=== PATIENT | male | born 1950 | race Two or more races ===

== ENCOUNTER 2016-09-10 14:42 | Emergency (ER) | payer OTHER ==
[~2016-09-10] VITALS: Ht 170.2 cm; Wt 66.7 kg
[2016-09-10] MEDS ORDERED: UNOBMED (14:59)
[2016-09-10 15:00] VITALS: BP 170/82
[2016-09-10] MEDS ORDERED: Albuterol ud Inhalation HHN ONE (15:15)
[2016-09-10] MEDS ORDERED: Ipratropium 0.02% Inh Soln 2.5ml UD HHN ONE (15:15)
[2016-09-10 15:37] LABS: BASOPHILS % (AUTO) 1.1 % (0.0-2.0); EOSINOPHILS % (AUTO) 0.7 % (0.0-3.0); LYMPHOCYTES % (AUTO) 14.1 % (20.0-45.0); MEAN CORPUSCULAR HEMOGLOBIN 30.5 PG (27.0-31.0); MEAN CORPUSCULAR HGB CONC 33.8 G/DL (32.0-36.0); MEAN CORPUSCULAR VOLUME 90 FL (80-99); MEAN PLATELET VOLUME 5.6 FL (6.5-10.1); MONOCYTES % (AUTO) 8.6 % (1.0-10.0); NEUTROPHILS % (AUTO) 75.5 % (45.0-75.0); PLATELET COUNT 504 K/UL (150-450); RED BLOOD COUNT 5.21 M/UL (4.70-6.10); RED CELL DISTRIBUTION WIDTH 12.2 % (11.6-14.8); WHITE BLOOD COUNT 15.3 K/UL (4.8-10.8)
[2016-09-10 15:38] LABS: APPEARANCE,URINE CLEAR; KETONES,URINE 1+ (NEGATIVE); LEUKOCYTE ESTERASE ,URINE 1+ (NEGATIVE); NITRITE,URINE NEGATIVE (NEGATIVE); PH,URINE 5 (4.5-8.0); PROTEIN,URINE 2+ (NEGATIVE); UROBILINOGEN,URINE 4 MG/DL (0.0-1.0)
[2016-09-10 15:41] LABS: ICTOTEST POSITIVE
[2016-09-10 15:49] LABS: HYALINE CASTS, URINE 20-30 /LPF
[2016-09-10 15:50] LABS: WBC,URINE 0-2 /HPF (0 - 0)
[2016-09-10 15:51] LABS: BACTERIA,URINE MODERATE /HPF
[2016-09-10 15:54] LABS: TROPONIN I < 0.30 ng/mL (<=0.30)
[2016-09-10 16:04] LABS: ALBUMIN/GLOBULIN RATIO 1.1 (1.0-2.7); CALCIUM 9.1 mg/dL (8.6-10.2); CREATININE 1.5 mg/dL (0.7-1.2); GLOMERULAR FILTRATION RATE 47.1 mL/min (>60); POTASSIUM 4.3 mEQ/L (3.4-4.9)
[2016-09-10] MEDS ORDERED: LEVAQUIN750 MG ORAL (16:16)
[2016-09-10] MEDS ORDERED: ALBUTEROL SULF8.5 GM INH (16:16)
[2016-09-10] MEDS ORDERED: PROMETHAZINE-C118 M1 ORAL (16:16)
[2016-09-10] MEDS ORDERED: ZOFRAN ODT4 MG ORAL (16:16)
--- NOTE | 2016-09-10 16:27 | Emergency Room Report ---
History of Present Illness General Chief Complaint: Dyspnea/Respdistress Source: Patient Present Illness HPI 65-year-old male presents ED complaining of weakness and cough x2 weeks. Cough is productive with greenish phlegm. States he feels weak with nausea and reduced appetite. Denies any fevers or chills. Denies chest pain or shortness of breath. No sick contacts or recent travel. No aggravating relieving factors. Denies any other associated symptoms Allergies: Coded Allergies: No Known Allergies (Unverified , 09/10/16) Patient History Past Medical History: HTN Past Surgical History: none Pertinent Family History: none Social History: Reports: smoking, Denies: alcohol use, drug use Immunizations: UTD Reviewed Nursing Documentation: PMH: Agreed, PSxH: Agreed Nursing Documentation-PMH Hx Hypertension: Yes Review of Systems All Other Systems: negative except mentioned in HPI Physical Exam Vital Signs Date Time Temp Pulse Resp B/P Pulse Ox O2 Delivery O2 Flow Rate FiO2 09/10/16 14:52 97.9 82 16 170/82 92 Room Air 09/10/16 15:00 94 Sp02 EP Interpretation: reviewed, normal General Appearance: no apparent distress, alert, GCS 15, non-toxic, thin Head: normocephalic ENT: hearing grossly normal, normal pharynx, no angioedema, normal voice Neck: full range of motion, supple/symm/no masses Respiratory: chest non-tender, lungs clear, normal breath sounds, speaking full sentences Cardiovascular #1: regular rate, rhythm, no edema Gastrointestinal: normal inspection Rectal: deferred Genitourinary: no CVA tenderness Musculoskeletal: normal inspection Neurologic: alert, oriented x3, responsive, motor strength/tone normal, sensory intact, speech normal Psychiatric: normal inspection Skin: normal inspection Lymphatic: normal inspection Medical Decision Making Diagnostic Impression: Primary Impression: UTI (urinary tract infection) Qualified Codes: N39.0 - Urinary tract infection, site not specified Additional Impression: COPD (chronic obstructive pulmonary disease) Qualified Codes: J41.1 - Mucopurulent chronic bronchitis ER Course Hospital Course 65-year-old male presents to ED complaining of weakness, productive cough, nausea Differential diagnoses include: URI, bronchitis, asthma/COPD, pneumonia Clinical course Patient placed on stretcher. After initial history, physical exam reveals an elderly male in no acute distress. Bilateral TM unremarkable. No pharyngeal erythema. No tonsillar exudates. No lymphadenopathy. lungs clear. I ordered labs, IV fluids, nebulizer treatments, EKG, chest x-ray. Labs reviewed-leukocytosis noted, hemoglobin/hematocrit stable, electrolytes okay, lactate okay, troponins negative. UA positive for bacteria Chest x-ray shows hyperinflated lungs. No obvious infiltrate EKG-normal sinus rhythm, no ischemic changes On reassessment patient states he feels better. Per curb-65 criteria, patient does not require admission. Patient can be safely discharged to home with outpatient therapy. Patient agrees with plan. Diagnosis -COPD, UTI Stable and discharged home with prescriptions for cough syrup, albuterol, Zofran , Levaquin. Instructed to followup with PMD. Return to ED if symptoms recur or worsen Labs Test 09/10/16 15:18 White Blood Count 15.3 K/UL (4.8-10.8) Red Blood Count 5.21 M/UL (4.70-6.10) Hemoglobin 15.9 G/DL (14.2-18.0) Hematocrit 47.1 % (42.0-52.0) Mean Corpuscular Volume 90 FL (80-99) Mean Corpuscular Hemoglobin 30.5 PG (27.0-31.0) Mean Corpuscular Hemoglobin Concent 33.8 G/DL (32.0-36.0) Red Cell Distribution Width 12.2 % (11.6-14.8) Platelet Count 504 K/UL (150-450) Mean Platelet Volume 5.6 FL (6.5-10.1) Neutrophils (%) (Auto) 75.5 % (45.0-75.0) Lymphocytes (%) (Auto) 14.1 % (20.0-45.0) Monocytes (%) (Auto) 8.6 % (1.0-10.0) Eosinophils (%) (Auto) 0.7 % (0.0-3.0) Basophils (%) (Auto) 1.1 % (0.0-2.0) Urine Color Pao Urine Appearance Clear Urine pH 5 (4.5-8.0) Urine Specific Likely 1.025 (1.005-1.035) Urine Protein 2+ (NEGATIVE) Urine Glucose (UA) Negative (NEGATIVE) Urine Ketones 1+ (NEGATIVE) Urine Occult Blood 3+ (NEGATIVE) Urine Nitrite Negative (NEGATIVE) Urine Bilirubin 1+ (NEGATIVE) Urine Ictotest Positive Urine Urobilinogen 4 MG/DL (0.0-1.0) Urine Leukocyte Esterase 1+ (NEGATIVE) Urine RBC 5-10 /HPF (0 - 0) Urine WBC 0-2 /HPF (0 - 0) Urine Squamous Epithelial Cells None /LPF (NONE/OCC) Urine Bacteria Moderate /HPF (NONE) Urine Hyaline Casts 20-30 /LPF (NONE) Sodium Level 137 mEQ/L (135-145) Potassium Level 4.3 mEQ/L (3.4-4.9) Chloride Level 96 mEQ/L (98-107) Carbon Dioxide Level 27 mEQ/L (20-30) Anion Gap 14 (5-15) Blood Urea Nitrogen 22 mg/dL (7-23) Creatinine 1.5 mg/dL (0.7-1.2) Estimat Glomerular Filtration Rate 47.1 mL/min (>60) Glucose Level 102 mg/dL (74-106) Lactic Acid Level 1.00 mmol/L (0.66-2.22) Calcium Level 9.1 mg/dL (8.6-10.2) Total Bilirubin 0.5 mg/dL (0.0-1.2) Aspartate Amino Transf (AST/SGOT) 23 U/L (5-40) Alanine Aminotransferase (ALT/SGPT) 15 U/L (3-41) Alkaline Phosphatase 64 U/L (40-129) Troponin I < 0.30 ng/mL (<=0.30) Pro-B-Type Natriuretic Peptide 1663 pg/mL (0-125) Total Protein 7.0 g/dL (6.6-8.7) Albumin 3.8 g/dL (3.5-5.2) Globulin 3.2 g/dL Albumin/Globulin Ratio 1.1 (1.0-2.7) EKG Diagnostic Results Rate: normal Rhythm: NSR ST Segments: no acute changes ASA given to the pt in ED: No Rhythm Strip Diag. Results EP Interpretation: yes Rhythm: NSR, no PVC's, no ectopy Chest X-Ray Diagnostic Results EP Interpretation: Yes Findings: no consolidation, no effusion, no pneumothorax, no acute cardiopulmonary disease Number of Views: 1 Last Vital Signs Date Time Temp Pulse Resp B/P Pulse Ox O2 Delivery O2 Flow Rate FiO2 2/24/17 15:33 73 13 100 Room Air 09/10/16 15:00 97.9 170/82 09/10/16 15:00 94 Status: improved Disposition: HOME, SELF-CARE Condition: Stable Scripts Albuterol Sulfate* (ALBUTEROL SULFATE MDI*) 8.5 Gm Hfa.aer.ad 2 PUFF INH Q4H Y for cough/wheezing, #1 EA 0 Refills Prov: ESTEFANÍA CHACON M.D. 09/10/16 Ondansetron Odt* (ZOFRAN ODT*) 4 Mg Tab.rapdis 4 MG ORAL Q6H Y for Nausea & Vomiting, #30 TAB 0 Refills Prov: ESTEFANÍA CHACON M.D. 09/10/16 Codeine/Promethazine Hcl* (PROMETHAZINE-CODEINE SYRUP*) 118 Ml Syrup 5 ML ORAL Q4H Y for For Cough, #118 ML 0 Refills Prov: ESTEFANÍA CHACON M.D. 09/10/16 Levofloxacin* (LEVAQUIN*) 750 Mg Tablet 750 MG ORAL DAILY, #5 TAB Prov: ESTEFANÍA CHACON M.D. 09/10/16 Patient Instructions: Chronic Obstructive Pulmonary Disease Exacerbation ESTEFANÍA CHACON M.D. Sep 10, 2016 16:27
[2016-09-10 16:43] VITALS: BP 170/82
--- NOTE | 2016-09-13 08:35 | Diagnostic Imaging Report ---
Indication: SOB Technique: One view of the chest Comparison: none Findings: Lungs and pleural spaces are clear. Heart size is normal. Impression: No acute process
--- NOTE | 2016-09-16 08:29 | Cardiology Report ---
APPROVED REPORT EKG Measurement Heart [id number] Normal sinus rhythm Septal infarct, age undetermined Abnormal ECG
== END 2016-09-10 16:44 | disposition home or self-care (01) ==
LOC: EMR 15:26
DX: N39.0 Urinary tract infection, site not specified (principal); J44.9 Chronic obstructive pulmonary disease, unspecified; I10 Essential (primary) hypertension
CPT/HCPCS: 36415; 71010; 80053; 81003; 83605; 83880; 84484; 85025; 87086; 93005; 94640; 94664; 96374; 96375; 99284; J2405; J7040

== ENCOUNTER 2018-02-24 09:41 | Emergency (ER) | payer MEDICARE, MEDICAID ==
[~2018-02-24] VITALS: Ht 182.9 cm; Wt 77.1 kg
[~2018-02-24 09:41] MED LIST: ALBUTEROL SULF8.5 GM INH; LEVAQUIN750 MG ORAL; PROMETHAZINE-C118 M1 ORAL; UNOBMED; ZOFRAN ODT4 MG ORAL
[2018-02-24 09:53] VITALS: BP 169/95
[2018-02-24] MEDS ORDERED: oxyCODONE HCL/Acetaminophen 5/325mg ORAL ONE (10:45)
[2018-02-24] MEDS ORDERED: BACTRIM DS TAB1 EAC1 ORAL (10:52)
[2018-02-24] MEDS ORDERED: NORCO 5-325 TA1 EACH ORAL (10:52)
[2018-02-24 11:06] VITALS: BP 169/95
--- NOTE | 2018-02-24 15:48 | Emergency Room Report ---
History of Present Illness General Chief Complaint: Pain Source: Patient Present Illness Allergies: Coded Allergies: No Known Allergies (Unverified , 09/10/16) Patient History Past Medical History: other - reviewed with patient PMH Narrative Mr. Brown is a 67 yo male with hx of left great toe infection. PCP provided Keflex and Ibuprofen. Still has redness pain and drainage from below nail. Has had trouble sleeping due to moderately severe pain. Awaiting referral to him specialist from PCP. Has to receive a letter of approval. Patient injured nail by inserting a pin under the nail Reviewed Nursing Documentation: PMH: Agreed; PSxH: Agreed Nursing Documentation-PMH Past Medical History: No History, Except For Hx Hypertension: Yes Review of Systems Constitutional: Denies: fever Cardiovascular: Denies: chest pain Skin: Reports: rash, change in color Physical Exam Vital Signs Date Time Temp Pulse Resp B/P (MAP) Pulse Ox O2 Delivery O2 Flow Rate FiO2 02/24/18 09:46 97.9 89 16 169/95 94 Room Air 97.9 Sp02 EP Interpretation: reviewed, normal General Appearance: normal inspection, well appearing Head: normocephalic, atraumatic Eyes: bilateral eye normal inspection Respiratory: no respiratory distress Musculoskeletal: other - left great toe swellling with purulent drainage expressed from under toenail which is raised. red toe 2+pedal pulse cap refill < 2 seconds in toe Medical Decision Making Diagnostic Impression: Primary Impression: Infection of toe ER Course left toe cellulitis with nail avulsion, bactrim added to keflex, recommended warm soaks, norco also prescribed Last Vital Signs Date Time Temp Pulse Resp B/P (MAP) Pulse Ox O2 Delivery O2 Flow Rate FiO2 02/24/18 11:06 97.9 89 16 169/95 94 Room Air 97.9 Disposition: HOME, SELF-CARE Condition: Stable Scripts Trimethoprim/Sulfamethoxazole 160/800* (BACTRIM DS TABLET*) 1 Each Tablet 1 TAB ORAL Q12H for 10 Days, #20 TAB 0 Refills Prov: DIANNE THOMAS 02/24/18 Hydrocodone Bit/Acetaminophen 5-325* (NORCO 5-325*) 1 Each Tablet 1 TAB ORAL Q6H PRN for For Pain, #10 TAB 0 Refills Prov: DIANNE THOMAS 02/24/18 Referrals: NON PHYSICIAN (PCP) Patient Instructions: Cellulitis, [id number] DIANNE THOMAS Feb 24, 2018 15:48
== END 2018-02-24 11:07 | disposition home or self-care (01) ==
LOC: EMR 10:05
DX: L08.9 Local infection of the skin and subcutaneous tissue, unspecified (principal); I10 Essential (primary) hypertension
CPT/HCPCS: 99283